=== PATIENT | male | born 1955 | race Caucasian/White ===

== ENCOUNTER → 2024-06-10 14:30 | Outpatient (REF) | payer MEDICARE, OTHER, SELFPAY | LOC: RAD 14:30 | PROVIDERS: ATTENDING PHYSICIAN Family Medicine | DX: R07.82 Intercostal pain (principal) | CPT/HCPCS: 71101 ==

== ENCOUNTER → 2024-07-26 14:06 | Outpatient (REF) | payer MEDICARE, OTHER, SELFPAY | LOC: RAD 14:06 | PROVIDERS: ATTENDING PHYSICIAN Family Medicine | DX: R07.82 Intercostal pain (principal); R07.89 Other chest pain | CPT/HCPCS: 71101 ==